=== PATIENT | female | born 1965 | race Caucasian/White ===

== ENCOUNTER 2018-02-03 13:26 | Outpatient (CLI) | payer OTHER ==
--- NOTE | 2018-02-03 15:45 | MRI ---
RIGHT SHOULDER MRI WITHOUT IV CONTRAST: 02/03/18 HISTORY: 52-year-old female with history of right shoulder impingement syndrome and right shoulder pain and lo ss of range of motion. There are marked AC joint arthrosis changes with some minimal undersurface spu rring of the lateral acromion. There is some fluid and fat stranding in the subacromial, subdeltoid b ursa. There appears to be a very high grade partial thickness undersurface and somewhat delaminating tear of the supraspinatus tendon extending into the conjoin tendon and into the more anterior aspect of the infraspinatus tendon. There is also an undersurface and delaminating tear of the subscapularis tendon. The biceps tendon appears intact. The posterior aspect of the superior labrum appears to be blunted and somewhat attenuated probably related to a degenerative type tear. IMPRESSION: Fairly large partial thickness undersurface high grade tear of the posterior supraspinatus, conjoined , and anterior infraspinatus tendons with some partial undersurface retraction back to the level of the rotator cable. Undersurface and delaminating tear of the subscapularis tendon. Somewhat blunted s maller caliber posterior superior labrum probably related to degenerative type tear. AC joint arthros is with lateral acromial undersurface spur. Moderate muscle volume loss of the supraspinatus and mild muscle volume loss of the infraspinatus muscles. POS: [facility]
== END 2018-02-03 13:27 | disposition home or self-care (01) ==
LOC: SCSMRI 13:26
PROVIDERS: ATTEND Family Medicine
DX: M75.41 Impingement syndrome of right shoulder (principal); M75.101 Unspecified rotator cuff tear or rupture of right shoulder, not specified as traumatic; M19.011 Primary osteoarthritis, right shoulder; M75.91 Shoulder lesion, unspecified, right shoulder

== ENCOUNTER 2018-03-17 13:57 | Outpatient (CLI) | payer OTHER ==
--- NOTE | 2018-03-18 09:53 | MRI ---
MRI LEFT SHOULDER: DATE: 03/17/18. PROVIDED CLINICAL HISTORY: Left shoulder pain. FINDINGS: There is a small low-grade partial-thickness articular surface tear with some delamination involving the anterior distal supraspinatus tendon at the foot plate. There is a small focus of increased sign al intensity on fluid-sensitive sequences involving the mid substance fibers of the subscapularis ten don near the lesser tuberosity insertion. The components of the rotator cuff appear otherwise intact . Rotator cuff muscular volume appears preserved. The long head biceps tendon appears intact and nor joey located. The glenoid labrum and glenohumeral articular cartilage are suboptimally evaluated without joint dist ention. There is signal alteration in the region of the superior labrum that may reflect SLAP tear. The amount of fluid within the glenohumeral joint is physiologic. There is slightly greater than phy siologic subacromial subdeltoid bursal fluid. Acromioclavicular joint osteoarthrosis is demonstrated with mass effect upon the subjacent supraspinatus. Subcortical cyst-like changes are seen involving the greater tuberosity of the humerus. There is no focal concerning regional marrow or muscular signal abnormality apparent. IMPRESSION: 1. Low-grade partial thickness undersurface tear involving the anterior distal supraspinatus tendon at the foot plate with associated delamination. 2. Signal alteration involving the subscapularis tendon may reflect low-grade partial thickness inte rstitial or undersurface tearing. 3. Findings suspicious for superior labrum anterior to posterior tear. 4. Acromioclavicular joint osteoarthrosis and greater than physiologic subacromial subdeltoid bursal fluid, the latter of which may reflect bursitis. Correlate with concerns for subacromial impingemen t. POS: [facility]
== END 2018-03-17 13:58 | disposition home or self-care (01) ==
LOC: SCSMRI 13:57
PROVIDERS: ATTEND Family Medicine
DX: M75.42 Impingement syndrome of left shoulder (principal); M19.012 Primary osteoarthritis, left shoulder; S46.012A Strain of muscle(s) and tendon(s) of the rotator cuff of left shoulder, initial encounter

== ENCOUNTER 2023-03-31 11:18 | Outpatient (CLI) | payer BC ==
[2023-03-31 12:47] LABS: #Basophils 0.1 10x3/uL (0.0-0.2); #Eosinphils 0.2 10x3/uL (0.0-0.5); #Monocytes 0.5 10x3/uL (0.0-1.1); #Neutrophils 2.2 10x3/uL (1.5-8.4); %Basophils 1.2 % (0.0-2.0); %Eosinophils 3.1 % (0.0-6.0); %Lymphocytes 44.1 % (18.0-47.0); %Neutrophils 42.2 % (40.0-75.0); Hemoglobin 15.1 g/dL (12.0-15.5); Mean Corpuscular HGB CONC 34.1 g/dL (32.0-36.0); Mean Corpuscular Hemoglobin 31.7 pg (27.0-33.0); Mean Corpuscular Volume 93.1 fl (81.6-98.3); Mean Platelet Volume 10.7 fl (7.4-10.4); Platelet Count 159 10x3/uL (150-450); RBC Distribution Width 12.2 % (11.5-14.5); Red Blood Cell (RBC) Count 4.76 10x6/uL (3.90-5.03); White Blood Cell (WBC) Count 5.1 10x3/uL (3.5-10.5)
[2023-03-31 12:54] LABS: ALT (SGPT) 77 U/L (8-55); AST (SGOT) 95 U/L (5-34); Albumin 4.3 g/dL (3.5-5.0); Alkaline Phosphatase 78 U/L (40-110); Anion Gap 13 mmol/L (10-20); BUN (Urea Nitrogen) 12 mg/dL (9.8-20.1); Bilirubin, Direct 0.2 mg/dL (0.1-0.3); Bilirubin, Total 0.6 mg/dL (0.2-1.2); Calc. Creatinine Clearance 0 mL/min (70-130); Calcium 9.3 mg/dL (7.8-10.44); Carbon Dioxide 22 mmol/L (22-29); Chloride 108 mmol/L (98-107); Estimated GFR 93; Glucose 130 mg/dL (70-105); Potassium 4.5 mmol/L (3.5-5.1); Protein, Total 7.5 g/dL (6.0-8.3); Sodium 138 mmol/L (136-145)
== END 2023-03-31 11:19 | disposition home or self-care (01) ==
LOC: LABBT 11:18
PROVIDERS: ATTEND Surgery
DX: Z01.818 Encounter for other preprocedural examination (principal); K80.20 Calculus of gallbladder without cholecystitis without obstruction
CPT/HCPCS: 80048; 80076; 85025; 93005; 93010

== ENCOUNTER 2024-04-10 08:24 | Outpatient (CLI) | payer BC ==
[2024-04-10] MEDS ORDERED: E-Z-HD 98% W/W 340GM BOT (x-ray ONLY) ONE (08:50)
[2024-04-10] MEDS ORDERED: Barium Sulfate 96% 176 GM BOT (xray ONLY) ONE (08:50)
== END 2024-04-10 08:25 | disposition home or self-care (01) ==
LOC: RAD 08:24
PROVIDERS: ATTEND Internal Medicine Gastroenterology
DX: K74.60 Unspecified cirrhosis of liver (principal); R13.19 Other dysphagia; K22.89 Other specified disease of esophagus; R91.1 Solitary pulmonary nodule
CPT/HCPCS: 74220

== ENCOUNTER 2024-04-11 09:28 | Outpatient (CLI) | payer BC | END 2024-04-11 09:29 | disposition home or self-care (01) | LOC: BICULT 09:28 | PROVIDERS: ATTEND Physician Assistant Medical | DX: K74.60 Unspecified cirrhosis of liver (principal); R16.1 Splenomegaly, not elsewhere classified | CPT/HCPCS: 76705 ==

== ENCOUNTER 2024-05-08 12:18 | Outpatient (CLI) | payer BC | END 2024-05-08 12:19 | disposition home or self-care (01) | LOC: CT 12:18 | DX: R91.1 Solitary pulmonary nodule (principal); J84.10 Pulmonary fibrosis, unspecified | CPT/HCPCS: 71250 ==

== ENCOUNTER 2024-09-17 09:23 | Outpatient (CLI) | payer BC | END 2024-09-17 09:24 | disposition home or self-care (01) | LOC: ULT 09:23 | PROVIDERS: ATTEND Physician Assistant Medical | DX: K74.60 Unspecified cirrhosis of liver (principal) | CPT/HCPCS: 76705 ==